=== PATIENT | female | born 1990 | race Two or more races ===

== ENCOUNTER → 2025-06-16 | Outpatient (CLI) | payer BC, MEDICAID, SELFPAY ==
--- NOTE | 2025-06-16 12:30 | XR_ITS ---
Examination: Bilateral hips, AP pelvis, 5 views Technique: AP, lateral views both hips, AP pelvis, 5 views Exam date and time: June 16, 2025, 1243 hours INDICATIONS: Bilateral hip pain beginning 2 months ago FINDINGS: Mild narrowing hip joints No right or left hip fracture or dislocation No avascular necrosis Bones the pelvis intact IMPRESSION: Mild narrowing hip joints bilaterally
[2025-06-16 14:37] LABS: Sed Rate (ESR) 16 mm/hr (0-20)
[2025-06-16 15:48] LABS: RA Screen Negative (Negative)
== END | disposition home or self-care (01) ==
PROVIDERS: PCP Family Medicine; Referring Provider Family Medicine; Visit Provider Family Medicine
DX: M25.852 Other specified joint disorders, left hip (principal); M25.851 Other specified joint disorders, right hip; M25.551 Pain in right hip
CPT/HCPCS: 36415; 73523; 85652; 86038; 86430